=== PATIENT | female | born 1995 | race Caucasian/White ===

== ENCOUNTER 2017-11-22 17:58 | Emergency (ER) | payer OTHER ==
[2017-11-22] MEDS ORDERED: Sodium Chloride 0.9% 1,000 ML IV ONE (18:20)
--- NOTE | 2017-11-22 18:29 | C.PDOC ---
History Of Present Illness 22 y/o female presents to ED with complaints of low abdominal pain since 3am this morning associated with nausea. Patient states pain became localized to epigastric area and radiating to back. Patient admits to decreased appetite and denies vomiting, diarrhea, change in urination, hematuria or any other complaints at this time. LMP 12/08/16. Patient was had baby in 09/2017 and was on depo provera shot, is not concerned for . Time Seen by Provider: 11/22/17 18:12 Chief Complaint (Nursing): Abdominal Pain History Per: Patient History/Exam Limitations: no limitations Onset/Duration Of Symptoms: Hrs Current Symptoms Are (Timing): Still Present Location Of Pain/Discomfort: Epigastric Radiation Of Pain To:: Back Past Medical History Reviewed: Historical Data, Nursing Documentation, Vital Signs Vital Signs: Last Vital Signs Temp 97.9 F 11/22/17 20:08 Pulse 75 11/22/17 20:08 Resp 18 11/22/17 20:08 BP 103/58 L 11/22/17 20:08 Pulse Ox 100 11/22/17 20:08 - Medical History PMH: No Chronic Diseases Surgical History: No Surg Hx - [facility] Procedures ARTIF RUPT MEMBRANES NEC (02/04/13) EPISIOTOMY (02/04/13) Family History: States: No Known Family Hx - Social History Hx Tobacco Use: No Hx Alcohol Use: Yes Hx Substance Use: No - Immunization History Hx Tetanus Toxoid Vaccination: Yes Hx Influenza Vaccination: No Hx Pneumococcal Vaccination: Yes Review Of Systems Constitutional: Negative for: Fever, Chills Gastrointestinal: Positive for: Nausea, Abdominal Pain. Negative for: Vomiting , Diarrhea Genitourinary: Negative for: Dysuria, Hematuria Musculoskeletal: Positive for: Back Pain Skin: Negative for: Rash Physical Exam - Physical Exam Appears: Non-toxic, No Acute Distress Skin: Warm, Dry, No Rash Head: Atraumatic, Normacephalic Oral Mucosa: Moist Neck: Normal ROM, Supple Cardiovascular: Rhythm Regular Respiratory: Normal Breath Sounds, No Rales, No Rhonchi, No Wheezing Gastrointestinal/Abdominal: Bowel Sounds, Tenderness (RUQ and Epigastric), Guarding, No Rebound Back: No CVA Tenderness Extremity: Normal ROM, Capillary Refill (<2 seconds) Neurological/Psych: Oriented x3, Normal Speech ED Course And Treatment - Laboratory Results Result Diagrams: 11/22/17 18:33 11/22/17 18:33 Lab Interpretation: Normal O2 Sat by Pulse Oximetry: 100 (RA) Pulse Ox Interpretation: Normal - CT Scan/US Abdominal ultrasound Other Rad Studies (CT/US): Read By Radiologist, Radiology Report Reviewed CT/US Interpretation: Accession No. : [id number]. Patient Name / ID : BRYCE SWIFT / [id number]. Exam Date : 11/22/2017 19:22:46 ( Approved ). Study Comment : Sex / Age : F / 22Y. Creator : EDEN GUO. Dictator : Edge Runner : Skin Piler : EDEN GUO. Approver2 : Report Date : 11/22/2017 20:36:00. My Comment : . [employer] [facility] Division of Radiology. [address] [place] [address]. Tel. no. . . . Patient Name: JENIFFER WU . Pt. Address: [address] [place] [address]. Rec #: [id number]. [place] [address]: Bella Puente MD. Pt Order Location: [facility] : 1995 Female Age: 22 Order #: [id number]. Reason for exam: abd pain. . . . . . Ultrasound. . . ABDOMEN COMPLETE Exam Date: . . This imaging exam was performed at [facility]. EXAM: US Abdomen Complete. . EXAM DATE/TIME: 11/22/2017 6:20 PM. . CLINICAL HISTORY: 22 years old, female; Pain; Abdominal pain; Generalized; Additional info: Abd. pain. . TECHNIQUE: Real-time ultrasound of the abdomen (complete) with image documentation. . COMPARISON: There are no prior studies for comparison. . FINDINGS: Liver: There is hepatopedal flow in the main portal vein. Liver is. unremarkable. Gallbladder: Gallbladder is distended with no stones, sludge or wall. thickening. Common bile duct: Common bile duct measures 5 mm in diameter. Pancreas: Pancreas is partially obscured by bowel gas. Kidneys: Kidneys are unremarkable. Spleen: Spleen is unremarkable. Aorta: Visualized portions of the aorta and inferior vena cava are. unremarkable. Inferior vena cava: See above. Free fluid: There is a small amount of free fluid. . IMPRESSION: Limited visualization of the pancreas, solid viscera are otherwise. unremarkable; no gallstones or ductal dilatation; small volume ascites. . Dictated By: Eden Guo MD., MD. Dictated Date/Time: 11/22/172035. Signed By: Eden Guo MD. Date Signed: 11/22/172035. Transcribed By: [facility]. Transcribe Date/Time: 2035. ANTONIO/ANGIE Reevaluation Time: 21:28 Reassessment Condition: Improved Disposition Counseled Patient/Family Regarding: Studies Performed, Diagnosis, Need For Followup - Disposition Referrals: Marc Boateng [Staff Provider] - Disposition: HOME/ ROUTINE Disposition Time: 21:32 Condition: IMPROVED Instructions: Acute Abdomen (Belly Pain), Adult (DC) Forms: [facility] (Hebrew) - Clinical Impression Clinical Impression: Abdominal pain - Scribe Statement The provider has reviewed the documentation as recorded by the Zackibjuli Goetz All medical record entries made by the Zackibjuli were at my direction and personally dictated by me. I have reviewed the chart and agree that the record accurately reflects my personal performance of the history, physical exam, medical decision making, and the department course for this patient. I have also personally directed, reviewed, and agree with the discharge instructions and disposition.
[2017-11-22] MEDS ORDERED: Sodium Chloride 0.9% 1,000 ML ONE (18:37)
[2017-11-22 18:41] LABS: BASO % 0.3 % (0.0-2.0); EOS # 0.1 K/uL (0.0-0.7); EOS % 0.8 % (0.0-4.0); LYMPH # 2.1 K/uL (1.0-4.3); LYMPH % 33.4 % (20.0-40.0); MEAN CORPUSCULAR HEMOGLOBIN 26.2 pg (27.0-31.0); MEAN CORPUSCULAR HGB CONC 31.9 g/dL (33.0-37.0); MEAN PLATELET VOLUME 9.1 fL (7.2-11.7); MONO # 0.4 K/uL (0.0-0.8); MONO % 6.3 % (0.0-10.0); NEUT # 3.7 K/uL (1.8-7.0); NEUT % 59.2 % (50.0-75.0); RBC 4.19 Mil/uL (3.80-5.20); RED CELL DISTRIBUTION WIDTH 16.4 % (11.5-14.5); WHITE BLOOD COUNT 6.3 K/uL (4.8-10.8)
[2017-11-22 18:44] LABS: HCG,QUALITATIVE URINE NEGATIVE (NEGATIVE); SQUAMOUS EPITHIAL 1 /hpf (0-5); URINE BILIRUBIN NEGATIVE (NEGATIVE); URINE BLOOD NEGATIVE (NEGATIVE); URINE CLARITY Hazy (Clear); URINE COLOR Yellow (YELLOW); URINE GLUCOSE (UA) NORMAL (Normal); URINE LEUKOCYTE ESTERASE NEG Leu/uL (Negative); URINE PROTEIN NEGATIVE (NEGATIVE); URINE UROBILINOGEN NORMAL mg/dL (0.2-1.0)
[2017-11-22 18:49] LABS: ALB/GLOB RATIO 1.2 (1.0-2.1); ALBUMIN 4.4 g/dL (3.5-5.0); ALT/SGPT 42 U/L (9-52); AST/SGOT 33 U/L (14-36); BLOOD UREA NITROGEN 11 mg/dL (7-17); CALCIUM 8.8 mg/dl (8.6-10.4); GFR AFRICAN-AMERICAN > 60; GFR NON-AFRICAN AMERICAN > 60; LIPASE 60 U/L (23-300)
--- NOTE | 2017-11-22 20:36 | US ---
EXAM: US Abdomen Complete EXAM DATE/TIME: 11/22/2017 6:20 PM CLINICAL HISTORY: 22 years old, female; Pain; Abdominal pain; Generalized; Additional info: Abd pain TECHNIQUE: Real-time ultrasound of the abdomen (complete) with image documentation. COMPARISON: There are no prior studies for comparison. FINDINGS: Liver: There is hepatopedal flow in the main portal vein. Liver is unremarkable. Gallbladder: Gallbladder is distended with no stones, sludge or wall thickening. Common bile duct: Common bile duct measures 5 mm in diameter. Pancreas: Pancreas is partially obscured by bowel gas. Kidneys: Kidneys are unremarkable. Spleen: Spleen is unremarkable. Aorta: Visualized portions of the aorta and inferior vena cava are unremarkable. Inferior vena cava: See above. Free fluid: There is a small amount of free fluid. IMPRESSION: Limited visualization of the pancreas, solid viscera are otherwise unremarkable; no gallstones or ductal dilatation; small volume ascites
[2017-11-22 21:40] VITALS: BP 106/52; PULSE 77; RESP 16; TEMP 98; O2SAT 98
== END 2017-11-22 21:50 | disposition home or self-care (01) ==
LOC: C.ER 17:58
DX: R10.13 Epigastric pain (principal)
CPT/HCPCS: 76700; 80053; 81001; 83690; 84703; 85025; 96361; 96374; 99285; J1885; J7040

== ENCOUNTER 2018-06-05 03:54 | Emergency (ER) | payer SELFPAY ==
[2018-06-05 04:09] VITALS: BP 103/68; PULSE 82; RESP 18; TEMP 98.6; O2SAT 100
--- NOTE | 2018-06-05 04:53 | C.PDOC ---
Time Seen by Provider: 06/05/18 04:18 Chief Complaint (Nursing): Abnormal Skin Integrity Past Medical History Vital Signs: Last Vital Signs Temp 98.6 F 06/05/18 04:03 Pulse 82 06/05/18 04:03 Resp 18 06/05/18 04:03 BP 103/68 06/05/18 04:03 Pulse Ox 100 06/05/18 04:03 - [facility] Procedures ARTIF RUPT MEMBRANES NEC (02/04/13) EPISIOTOMY (02/04/13) - Social History Hx Tobacco Use: No Hx Alcohol Use: Yes Hx Substance Use: No - Immunization History Hx Tetanus Toxoid Vaccination: Yes Hx Influenza Vaccination: No Hx Pneumococcal Vaccination: Yes ED Course And Treatment O2 Sat by Pulse Oximetry: 100 Disposition - Disposition Disposition: HOME/ ROUTINE Disposition Time: 04:51 Condition: STABLE Additional Instructions: Follow up with the your doctor in 1-2 days. Return to ER if symptoms persist or worsen. Prescriptions: DiphenhydrAMINE [Benadryl] 25 mg PO Q6 #20 cap predniSONE [Prednisone] 40 mg PO DAILY #8 tab Instructions: Maxwell (DC) Forms: [employer] (Libyan)
--- NOTE | 2018-06-05 04:55 | C.PDOC ---
History Of Present Illness 23 year old female presents to the emergency department with complaints of an itchy rash since yesterday. Patient states that she has no known allergens including no new foods, medications, or detergents. Patient states that she has had no difficulty breathing or swallowing, lip or tongue swelling, nausea, vomiting, shortness of breath, or chest pain. Has not tried any medication for the symptoms. Time Seen by Provider: 06/05/18 04:48 Chief Complaint (Nursing): Abnormal Skin Integrity History Per: Patient History/Exam Limitations: no limitations Onset/Duration Of Symptoms: Days (1) Current Symptoms Are (Timing): Still Present Location Of Injury: Anterior: Chest Quality Of Symptoms: Itching Past Medical History Reviewed: Historical Data, Nursing Documentation, Vital Signs Vital Signs: Last Vital Signs Temp 98.6 F 06/05/18 04:03 Pulse 82 06/05/18 04:03 Resp 18 06/05/18 04:03 BP 103/68 06/05/18 04:03 Pulse Ox 100 06/05/18 04:03 - Medical History PMH: No Chronic Diseases Surgical History: No Surg Hx - [facility] Procedures ARTIF RUPT MEMBRANES NEC (02/04/13) EPISIOTOMY (02/04/13) Family History: States: No Known Family Hx - Social History Hx Tobacco Use: No Hx Alcohol Use: Yes Hx Substance Use: No - Immunization History Hx Tetanus Toxoid Vaccination: Yes Hx Influenza Vaccination: No Hx Pneumococcal Vaccination: Yes Review Of Systems Except As Marked, All Systems Reviewed And Found Negative. Cardiovascular: Negative for: Chest Pain Respiratory: Negative for: Shortness of Breath Gastrointestinal: Negative for: Nausea, Vomiting Skin: Positive for: Rash Physical Exam - Physical Exam Appears: Well, Non-toxic, No Acute Distress Skin: Warm, Dry, Rash (urticaria present to the chest and bilateral upper extremities) Head: Atraumatic, Normacephalic Eye(s): bilateral: Normal Inspection, EOMI Nose: Normal Oral Mucosa: Moist Tongue: Normal Appearing, No Swelling Lips: Normal Appearing, No Swelling Throat: Normal, No Erythema, No Exudate, No Drooling Neck: Normal ROM, Supple Chest: Symmetrical, No Tenderness Cardiovascular: Rhythm Regular Respiratory: Normal Breath Sounds, No Decreased Breath Sounds, No Rales, No Rhonchi, No Wheezing, Other (speaking complete sentences) Gastrointestinal/Abdominal: Normal Exam, Soft, No Tenderness Extremity: Normal ROM (all extremities) Neurological/Psych: Oriented x3, Normal Speech, Normal Cognition ED Course And Treatment O2 Sat by Pulse Oximetry: 100 (RA) Pulse Ox Interpretation: Normal Progress Note: Plan: Benadryl 50mg PO. Prednisone 40mg PO. On re-evaluation, patient is resting comfortably, tolerating PO, has no shortness of breath, has no intra-oral swelling, no stridor. Patient notes that pruritus has improved. Patient was advised to avoid potential allergens, and to follow up with physician in 1-2 days. Disposition - Disposition Disposition: HOME/ ROUTINE Disposition Time: 04:30 Condition: STABLE Additional Instructions: Follow up with the your doctor in 1-2 days. Return to ER if symptoms persist or worsen. 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 - Scribe Statement The provider has reviewed the documentation as recorded by the Scribe (Tim Ramos) All medical record entries made by the Scribe were at my direction and personally dictated by me. I have reviewed the chart and agree that the record accurately reflects my personal performance of the history, physical exam, medical decision making, and the department course for this patient. I have also personally directed, reviewed, and agree with the discharge instructions and disposition.
== END 2018-06-05 05:16 | disposition home or self-care (01) ==
LOC: C.ER 03:54
DX: L50.9 Urticaria, unspecified (principal)